=== PATIENT | male | born 1995 | race Caucasian/White ===

== ENCOUNTER 2021-11-25 18:28 | Emergency (ER) | payer BC, MEDICAID ==
[2021-11-25 18:48] VITALS: BP 129/70; PULSE 67
== END 2021-11-25 20:02 | disposition home or self-care (01) ==
LOC: JP.ED 18:28
DX: S62.645A Nondisplaced fracture of proximal phalanx of left ring finger, initial encounter for closed fracture (principal); F17.210 Nicotine dependence, cigarettes, uncomplicated; W29.3XXA Contact with powered garden and outdoor hand tools and machinery, initial encounter
CPT/HCPCS: 73130-26-LT; 73130-LT; 99283